=== PATIENT | male | born 1950 | race Caucasian/White ===

== ENCOUNTER 2017-10-31 11:15 | Emergency (ER) | payer MEDICARE, OTHER ==
[~2017-10-31] VITALS: Ht 182.9 cm; Wt 97.0 kg
[2017-10-31] VITALS (7 sets, daily range): BP systolic 127–151; BP diastolic 69–86; PULSE 68–74; RESP 11–20; TEMP 98.1; O2SAT 99–100
[~2017-10-31 11:15] MED LIST: ZOCO40TA PO
[2017-10-31 13:30] LABS: AUTOMATED NEUTROPHIL # 4.2 TH/MM3 (1.8-7.7); BASOPHIL % 0.8 % (0.0-2.0); EOSINOPHIL % 0.3 % (0.0-4.0); HEMATOCRIT 42.2 % (39.0-51.0); HEMOGLOBIN 14.5 GM/DL (13.0-17.0); LYMPH % 12.7 % (9.0-44.0); LYMPHOCYTE # 0.7 TH/MM3 (1.0-4.8); MEAN CELL VOLUME 86.3 FL (80.0-100.0); MEAN CORPUSCULAR HEMOGLOBIN 29.8 PG (27.0-34.0); MEAN CORPUSCULAR HGB CONC 34.5 % (32.0-36.0); MEAN PLATELET VOLUME 8.5 FL (7.0-11.0); MONO % 7.5 % (0.0-8.0); MONOCYTE # 0.4 TH/MM3 (0-0.9); NEUT % 78.7 % (16.0-70.0); PLATELET COUNT 169 TH/MM3 (150-450); RED BLOOD COUNT 4.88 MIL/MM3 (4.50-5.90); RED CELL DISTRIBUTION WIDTH 14.4 % (11.6-17.2); WHITE BLOOD COUNT 5.4 TH/MM3 (4.0-11.0)
[2017-10-31] MEDS ORDERED: SODIUM CHLORIDE 0.9% FLUSH 10 ML FLUSH IVF PRN (13:45)
[2017-10-31 13:47] LABS: ALBUMIN 3.2 GM/DL (3.4-5.0); ALT (GPT) 17 U/L (12-78); AST (GOT) 18 U/L (15-37); BICARBONATE 24.1 MEQ/L (21.0-32.0); BLOOD UREA NITROGEN 21 MG/DL (7-18); CALCIUM 8.3 MG/DL (8.5-10.1); CHLORIDE 111 MEQ/L (98-107); CREATININE 1.01 MG/DL (0.60-1.30); GLOMERULAR FILTRATION RATE 73 ML/MIN (>89); GLUCOSE,RANDOM 89 MG/DL (74-106); SODIUM (NA) 143 MEQ/L (136-145)
[2017-10-31 13:49] LABS: ALKALINE PHOSPHATASE 77 U/L (45-117); TOTAL BILIRUBIN ADULT 0.5 MG/DL (0.2-1.0); TOTAL PROTEIN 6.4 GM/DL (6.4-8.2)
--- NOTE | 2017-10-31 13:55 | PD ---
HPI Chief Complaint: Syncope/Near-Syncope Time Seen by Provider: 13:25 Travel History International Travel<30 days: No Contact w/Intl Traveler<30days: No History of Present Illness HPI Patient comes emergency department for evaluation of syncopal episode that occurred while at work today. Patient reports that he got up to use restroom after taking a few steps got dizzy lightheaded and had a syncopal event. Patient reports this was witnessed. Patient reports he hit his head. Patient denies any chest pain pre-or post syncopal episode. Patient reports history of similar in the past but has been several years. Patient's son is at bedside states that patient does not drink a lot of fluid secondary to urinary frequency status post prostate surgery which causes him to get lightheaded and syncope or near syncopal events. Denies any fevers, headache, dizziness, change in vision, numbness or tingling anywhere, neck pain, or back pain. Severity mild. PFSH Past Medical History Heart Rhythm Problems: No Cancer: Yes (prostrate 2005) Cardiovascular Problems: No High Cholesterol: Yes Chemotherapy: No Chest Pain: No Congestive Heart Failure: No Diminished Hearing: No Endocrine: No Genitourinary: Yes (kidney stones and right PCNU ) Immune Disorder: No Kidney Stones: Yes Musculoskeletal: No Neurologic: No Psychiatric: No Reproductive: Yes (Prostate cancer in 2002, prostatectomy 2002) Respiratory: No Radiation Therapy: No Past Surgical History Body Medical Devices: Screws in right ankle, right ileal conduit. Genitourinary Surgery: Yes (prostratectomy ) Social History Alcohol Use: No Tobacco Use: No Substance Use: No Allergies-Medications (Allergen,Severity, Reaction): Coded Allergies: acetaminophen (Verified Allergy, Intermediate, fainted, 10/31/17) oxycodone (Verified Allergy, Intermediate, fainted, 10/31/17) Reported Meds & Prescriptions Reported Meds & Active Scripts Active Reported Zocor (Simvastatin) 40 Mg Tab 40 Mg PO HS Review of Systems Except as stated in HPI: all other systems reviewed are Neg Physical Exam Narrative GENERAL: Well-developed, overly nourished, in no acute distress, and non-ill appearing. SKIN: Focused skin assessment warm and dry. HEAD: Atraumatic. Normocephalic. EYES: Pupils equal and round. EOMI. No scleral icterus. No injection or drainage. ENT: No nasal bleeding or discharge. Mucous membranes pink and moist. NECK: Trachea midline. No JVD. Supple. No nuclear rigidity. CARDIOVASCULAR: Regular rate and rhythm. No murmur appreciated. RESPIRATORY: No accessory muscle use. No respiratory distress. Clear to auscultation. Breath sounds equal bilaterally. MUSCULOSKELETAL: No obvious deformities. No clubbing. No cyanosis. No edema. Full range of motion. Shoulder:FROM equal BL with passive flexion, extension, Abduction, Adduction, internal/external rotation, and pronation/supination. Sensation equal BL deltoid muscles. Pulses equal BL distal to injury. Capillary refill less than 2 seconds distal to injury and equal BL. FROM distal to injury and equal BL. Strength distal to injury equal BL. NV intact distal to injury equal BL. Flexion and extension of thumb equal BL. Equal strength and movement with abduction/adductions of BL fingers. Musical Performer strength equal BL. NEUROLOGICAL: Awake and alert. No obvious cranial nerve deficits. Motor grossly within normal limits. Normal speech. Equal rise and fall of eyebrows. Smile is symmetrical. No deviation of the tongue. PSYCHIATRIC: Appropriate mood and affect; insight and judgment normal. Data Data Last Documented VS Vital Signs Date Time Temp Pulse Resp B/P (MAP) Pulse Ox O2 Delivery O2 Flow Rate FiO2 10/31/17 16:51 10/31/17 16:30 74 15 100 Room Air 10/31/17 11:34 98.1 Orders Orders Electrocardiogram (10/31/17 ) Complete Blood Count With Diff (10/31/17 12:35) Comprehensive Metabolic Panel (10/31/17 12:35) Iv Access Insert/Monitor (10/31/17 12:35) Ct Brain W/O Iv Contrast(Rout) (10/31/17 ) Magnesium (Mg) (10/31/17 13:42) Ckmb (Isoenzyme) Profile (10/31/17 13:42) Troponin I (10/31/17 13:42) Act Partial Throm Time (Ptt) (10/31/17 13:42) Prothrombin Time / Inr (Pt) (10/31/17 13:42) Urinalysis - C+S If Indicated (10/31/17 13:42) Ecg Monitoring (10/31/17 13:42) Oximetry (10/31/17 13:42) Sodium Chloride 0.9% Flush (Ns Flush) (10/31/17 13:45) Orthostatic Vital Signs (10/31/17 13:42) D-Dimer (10/31/17 13:42) Sodium Chlor 0.9% 1000 Ml Inj (Ns 1000 M (10/31/17 15:00) Ed Discharge Order (10/31/17 16:44) Labs Laboratory Tests Test 10/31/17 12:38 10/31/17 14:25 White Blood Count 5.4 TH/MM3 Red Blood Count 4.88 MIL/MM3 Hemoglobin 14.5 GM/DL Hematocrit 42.2 % Mean Corpuscular Volume 86.3 FL Mean Corpuscular Hemoglobin 29.8 PG Mean Corpuscular Hemoglobin Concent 34.5 % Red Cell Distribution Width 14.4 % Platelet Count 169 TH/MM3 Mean Platelet Volume 8.5 FL Neutrophils (%) (Auto) 78.7 % Lymphocytes (%) (Auto) 12.7 % Monocytes (%) (Auto) 7.5 % Eosinophils (%) (Auto) 0.3 % Basophils (%) (Auto) 0.8 % Neutrophils # (Auto) 4.2 TH/MM3 Lymphocytes # (Auto) 0.7 TH/MM3 Monocytes # (Auto) 0.4 TH/MM3 Eosinophils # (Auto) 0.0 TH/MM3 Basophils # (Auto) 0.0 TH/MM3 CBC Comment DIFF FINAL Differential Comment Blood Urea Nitrogen 21 MG/DL Creatinine 1.01 MG/DL Random Glucose 89 MG/DL Total Protein 6.4 GM/DL Albumin 3.2 GM/DL Calcium Level 8.3 MG/DL Alkaline Phosphatase 77 U/L Aspartate Amino Transf (AST/SGOT) 18 U/L Alanine Aminotransferase (ALT/SGPT) 17 U/L Total Bilirubin 0.5 MG/DL Sodium Level 143 MEQ/L Potassium Level 4.0 MEQ/L Chloride Level 111 MEQ/L Carbon Dioxide Level 24.1 MEQ/L Anion Gap 8 MEQ/L Estimat Glomerular Filtration Rate 73 ML/MIN Prothrombin Time 10.0 SEC Prothromb Time International Ratio 1.0 RATIO Activated Partial Thromboplast Time 24.8 SEC D-Dimer Quantitative (PE/DVT) 0.34 MG/L FEU Urine Color YELLOW Urine Turbidity CLEAR Urine pH 7.5 Urine Specific [place] 1.018 Urine Protein NEG mg/dL Urine Glucose (UA) NEG mg/dL Urine Ketones NEG mg/dL Urine Occult Blood NEG Urine Nitrite NEG Urine Bilirubin NEG Urine Urobilinogen LESS THAN 2.0 MG/DL Urine Leukocyte Esterase NEG Urine RBC 1 /hpf Urine Mucus FEW /lpf Microscopic Urinalysis Comment CULT NOT INDICATED Magnesium Level 1.9 MG/DL Total Creatine Kinase 77 U/L Troponin I LESS THAN 0.02 NG/ML MDM Medical Decision Making Medical Screen Exam Complete: Yes Emergency Medical Condition: Yes Interpretation(s) EKG reviewed by Dr. Varela shows sinus rhythm ventricular rate 62. No STEMI. Last Impressions Head CT 10/31/17 0000 Signed Impressions: Service Date/Time: Tuesday, October 31, 2017 13:56 - CONCLUSION: 1. Negative noncontrast CT of the brain. Fredrick Berrios MD Differential Diagnosis Vasovagal syncope, chest pain, closed head injury, recurrent hemorrhage, orthostatic hypotension, volume depletion Narrative Course Patient presented with a syncopal event. It appears clinically due to volume depletion. The patient has no significant risk factors and no significant co- morbidities. The patient denied any symptoms of chest pain, SOB/difficulty breathing, palpitations or skipped heartbeats. The patient denied and headache. There was no evidence clinically to suspect acute pulmonary embolism, cardiac dysrhythmia, or intracranial event or bleed. EKG and laboratory evaluation revealed no significant findings. The patient was given IV hydration and noted significant improvement. The patient may be safely discharged and follow up as an outpatient. The patient was instructed to return if events occur more frequently or associated with chest pain, SOB/difficulty breathing, palpitations or skipped heartbeats or headache or blood in stool or tarry in stools. Patient in no obvious distress upon re-evaluation. All pertinent laboratory/ Radiology result(s) discussed with patient/family. Discussed patient with Dr. Varela prior to discharge, who is in agreement with plan of care and disposition. Any questions/concerns in reference to patient diagnosis/ condition discussed and clarified prior to patient's discharge. Reinforced sheer importance of close follow up with patient's primary physician or primary care clinic. Instructed patient to return to ED immediately, if symptoms return/ worsen. Patient showed understanding of above instructions. Further instructions and recommendations were detailed in discharge paperwork. Patient ambulated without difficulty out of ED at discharge. Diagnosis Primary Impression: Orthostatic hypotension Additional Impression: Syncope Qualified Codes: R55 - Syncope and collapse Referrals: [facility] Patient Instructions: General Instructions, Hypotension (ED), Syncope (DC) Additional Instructions: Follow-up with your primary care physician this week for reevaluation. Drink plenty of non-caffeinated and nonalcoholic fluids. Do not go from sitting to standing too quickly to avoid future episodes. Return to the emergency department if symptoms get worse. Disposition: 01 DISCHARGE HOME Condition: Stable Karl Pelayo Oct 31, 2017 13:55
--- NOTE | 2017-10-31 14:18 | RADRPT ---
EXAM DATE/TIME: 10/31/2017 13:56 [facility] COMPARISON: No previous studies available for comparison. INDICATIONS : Syncopal episode RADIATION DOSE: 44.17 CTDIvol (mGy) MEDICAL HISTORY : Prostate cancer SURGICAL HISTORY : None. ENCOUNTER: Initial ACUITY: 1 day PAIN SCALE: 0/10 LOCATION: cranial TECHNIQUE: Multiple contiguous axial images were obtained of the head. Using automated exposure control and adj ustment of the mA and/or kV according to patient size, radiation dose was kept as low as reasonably a chievable to obtain optimal diagnostic quality images. DICOM format image data is available electro nically for review and comparison. FINDINGS: CEREBRUM: The ventricles are normal for age. No evidence of midline shift, mass lesion, hemorrhage or acute in farction. No extra-axial fluid collections are seen. POSTERIOR FOSSA: The cerebellum and brainstem are intact. The 4th ventricle is midline. The cerebellopontine angle i s unremarkable. EXTRACRANIAL: The visualized portion of the orbits is intact. SKULL: The calvaria is intact. No evidence of skull fracture. CONCLUSION: 1. Negative noncontrast CT of the brain. Fredrick Berrios MD on October 31, 2017 at 14:16 Board Certified Radiologist. This report was verified electronically.
[2017-10-31] MEDS ORDERED: SODIUM CHLOR 0.9% 1000 ML INJ 1,000 ML IV ONE (15:00)
[2017-10-31 15:48] LABS: BILIRUBIN, URINE NEG (NEG); BLOOD, URINE NEG (NEG); GLUCOSE,URINE NEG (NEG); KETONE, URINE NEG (NEG); MUCUS URINE FEW /lpf (OCC); NITRITE,URINE NEG (NEG); PH, URINE 7.5 (5.0-8.5); URINE COLOR YELLOW (YELLW/STRAW); URINE LEUKOCYTE ESTERASE NEG (NEG)
[2017-10-31 16:07] LABS: MAGNESIUM 1.9 MG/DL (1.5-2.5)
[2017-10-31 16:10] LABS: TROPONIN I LESS THAN 0.02 NG/ML (0.02-0.05)
[2017-10-31 16:35] LABS: D-DIMER 0.34 MG/L FEU (0.00-0.50)
--- NOTE | 2017-11-01 16:37 | EKG ---
Date Performed: 10/31/2017 Time Performed: 12:01:31 PTAGE: 67 years EKG: Sinus rhythm Since previous tracing, no significant change noted NORMAL ECG PREVIOUS TRACING : 05/15/2009 20.13 DOCTOR: Dilan Neal Interpretating Date/Time 11/01/2017 16:36:16
== END 2017-10-31 17:11 | disposition home or self-care (01) ==
LOC: NEPE 11:15
DX: I95.1 Orthostatic hypotension (principal); E78.00 Pure hypercholesterolemia, unspecified
CPT/HCPCS: 70450; 80053; 81001; 82550; 83735; 84484; 85025; 85379; 85610; 85730; 93005; 96360; 99285; J7030